=== PATIENT | male | born 1970 | race Caucasian/White ===

== ENCOUNTER 2022-05-09 11:57 | Day surgery (SDC) | payer OTHER ==
[~2022-05-09] VITALS: Ht 177.8 cm; Wt 75.0 kg
[~2022-05-09 11:57] MED LIST: CELEBREX200 MG PO; COSENTYX P150 MG/11 SUB-Q; OTEZLA30 MG PO; TADALAFIL20 M1 PO; TRIAMCINOLONE A15 GM TOP; VALTREX1000 MG PO; VITAMIN D21250 MCG PO
--- NOTE | 2022-05-09 13:44 | NUR ---
05/09/22 1342 Tracey Arce 1334 PATIENT ARRIVES TO PACU AWAKE BUT DROWSY. ASKS/ANSWERS QUESTIONS APPROPRIATELY. RESP EVEN AND UNLABORED, ROOM AIR SATS >94%. DENIES PAIN OR NAUSEA. REPOSITIONS SELF TO BACK. SITTING UP DRINKING WATER.
--- NOTE | 2022-05-11 08:10 | OR ---
[facility] [address] [place], [place] [address] Signed DATE OF OPERATION: 05/09/2022 SURGEON: Radha Curtis MD PREOPERATIVE DIAGNOSIS: Surveillance history of submucosal lipoma in excision 2016. POSTOPERATIVE DIAGNOSIS: Linear polyp at 50 cm (excised). PROCEDURE: Total colonoscopy to cecum with cold snare polypectomy x1 surgeon. ANESTHESIA: Intravenous sedation; fentanyl 200 mcg and Versed 10 mg. INDICATIONS: This 51-year-old white man is a patient Dr. Galo and known to me from the past undergoing colonoscopy in 2016, six years ago and finding of a submucosal lipoma, which was resected. He is symptom free currently. He has family history of colon cancer in a maternal grandmother and a paternal grandmother. He currently has no symptoms of bleeding, diarrhea, or constipation. He is admitted to undergo colonoscopy and understands the risks of bleeding, infection, and perforation. FINDINGS: The prep was excellent. Complete colonoscopy was undertaken to the cecum without question. An area of tattoo from prior polypectomy or similar resection was noted in the sigmoid. He had a linear polyp at 50 cm, which was excised with cold snare technique. The remaining colon was normal. DESCRIPTION OF PROCEDURE: The patient was brought to the endoscopy suite and placed in lateral decubitus position given intravenous sedation to the point of slurred speech and nystagmus. Digital rectal examination was normal. Olympus video colonoscope was passed into the rectum and manipulated throughout the colon, ultimately intubating the cecum itself. The ileocecal valve and appendiceal orifice were entirely normal. The scope was withdrawn from that point of examination throughout, showed no sign of abnormality until approximately 50 cm from the anal verge, where a linear adenomatous-appearing polyp was noted, this was excised with cold snare polypectomy technique in two separate bites. Further withdrawal showed a submucosal tattoo roz in the rectosigmoid area. The scope was further Electronically Signed By: RADHA CURTIS MD 05/11/22 0810 PATIENT NAME: RADHA CORDOBA OPERATIVE REPORT DATE OF : 74 REPORT #: [id number] PHYSICIAN: RADHA CURTIS MD PCP: ARSALAN GALO MD REPORT IS CONFIDENTIAL AND NOT TO BE RELEASED WITHOUT AUTHORIZATION [facility] [address] [facility] [place], [place] [address] Signed withdrawn. There were no other findings of concern. He was taken to the recovery room in good condition. CONCLUDING DIAGNOSIS: Polyps x1. PLAN: Recommend repeat colonoscopy in three years or sooner if symptoms should occur. He will return to the ongoing care of Dr. Galo. MD VAISHALI Reardon/CHALINO /[id number] cc: Dr. Galo Copies: ~ Electronically Signed By: RADHA CURTIS MD 05/11/22 0810 PATIENT NAME: RADHA CORDOBA OPERATIVE REPORT DATE OF : 74 REPORT #: [id number] PHYSICIAN: RADHA CURTIS MD PCP: ARSALAN GALO MD REPORT IS CONFIDENTIAL AND NOT TO BE RELEASED WITHOUT AUTHORIZATION
--- NOTE | 2022-05-12 20:41 | PATH ---
[facility] [address] [place], [place] [address] Signed SPECIMEN(S): A COLON POLYP AT 50 CM SPECIMEN SOURCE: A. COLON POLYP AT 50 CM CLINICAL HISTORY: Surveillance colonoscopy; history of submucosal lipoma on colonoscopy in 2016. FINAL PATHOLOGIC DIAGNOSIS: Colon, polyp at 50 cm, biopsy: - Hyperplastic polyp. NRT:alf:STEVENSON MICROSCOPIC EXAMINATION: Histologic sections of all submitted blocks are examined by light microscopy. These findings, together with the gross examination, support the pathologic diagnosis. GROSS DESCRIPTION: The specimen, labeled "PATRICIA, colon polyp at 50 cm," is received in formalin and consists of three escobar soft tissue fragments that measure 0.3 to 1.3 cm in greatest dimension. The specimen is entirely submitted in cassette (A1). HH (under the direct supervision of a pathologist) The Gross Description was prepared using a voice recognition system. The report was reviewed for accuracy; however, sound-alike word errors, addition and/or deletions may occur. If there is any question about this report, please contact Client Services. PERFORMING LABORATORY: The technical component was performed by [facility], [address] [place] [id number] (CLIA# [id number]). [facility] [address] [facility], [place] [address] (CLIA# [id number]). Diagnostician: Janine Hutton MD Pathologist Electronically Signed 05/12/2022 PATIENT NAME: RADHA CORDOBA PATHOLOGY DATE OF : 74 REPORT #: [id number] PHYSICIAN: SOSA ÁLVAREZ PCP: ARSALAN SHEPARD MD REPORT IS CONFIDENTIAL AND NOT TO BE RELEASED WITHOUT AUTHORIZATION
== END 2022-05-09 14:10 | disposition home or self-care (01) ==
LOC: DS 11:57 → OPS 11:57 → DS 13:00 → OPS 13:00
PROVIDERS: ATTEND Surgery
PROC: 0DBN8ZZ Excision of Sigmoid Colon, Via Natural or Artificial Opening Endoscopic (ICD-10-PCS; principal; 2022-05-09 13:00)
DX: Z12.11 Encounter for screening for malignant neoplasm of colon (principal); Z80.0 Family history of malignant neoplasm of digestive organs; M25.40 Effusion, unspecified joint; Z86.018 Personal history of other benign neoplasm; K63.5 Polyp of colon
CPT/HCPCS: 99153; G0500; J2250; J3010; J7121

== ENCOUNTER 2025-06-12 08:40 | Day surgery (SDC) | payer OTHER ==
[2025-06-09 07:32] VITALS: BP 169/112
[2025-06-09 07:54] VITALS: BP 152/112
--- NOTE | 2025-06-09 08:05 | NUR ---
PT BP ELEVATED. PT STATES HAVING ANKLE PAIN FROM PSORIATIC ARTHIRITIS FLARE. TOOK INJECTION THIS AM. RECHECK OF BP 152/112. STATES BP WAS "ABOUT THE SAME AT PRE OP DOCTOR APPOINTMENT." ENCOURAGED TO CALL DR SHEPARD AND GET IN TO BE SEEN SOON POSSIBLE FOR BP. CHART TO OCULAR CARE TECHNICIAN FOR REVIEW.
[~2025-06-12] VITALS: Ht 177.8 cm; Wt 77.0 kg
[~2025-06-12 08:40] MED LIST changes: +CHLORDIAZEPOXID25 MG PO; +FOLIC ACID0.4 MG PO; +IBLOOD GLUCOSE TEST STRIP 1 EA TEST VI PRN; +KETOCONAZOLE15 GM TOP; +LACTATED RINGER'S 1,000 ML IV SCH; +LIDOCAINE HCL 1% 5 ML SDV INJ ONE; +VITAMIN B-1100 MG PO
[2025-06-12 08:58] VITALS: BP 144/89
--- NOTE | 2025-06-12 09:35 | NUR ---
0917-PT ARRIVED BACK TO ON RA, AAOX3, ANSWERING QUESTIONS APPROPRIATELY, AND ABLE TO MAKE HIS NEEDS KNOWN. VS TAKEN. IV SITE ASSESSED. REPORT RECEIVED FROM EVENT OPERATIONS MANAGER. NO VISIBLE DRAINAGE FROM URETHRA AND ABEL PATENT AND DRAINING ADAQUATE AMTS OF CLR, PINK URINE TO GRAVITY. CATH SECURE IN PLACE. PT REPORTS TOLERABLE PAIN AT 2/10 AND DENIES NAUSEA. PT SIPPING ON ICE WATER. IV NOTED TO BE SL'D UPON RETURN. ALL QUESTIONS ANSWERED. BED IN LOW POSITION, WHEELS LOCKED, BILAT RAILS IN PLACE FOR SAFETY. WARM BLANKET PROVIDED. AT BEDSIDE. 0935-SPOKE WITH DR KELLOGG AND RECEIVED DIRECTION TO REMOVE ABEL CATH. SHE REPORTS PT CAN GO HOME AFTERWARDS AND DOES NOT NEED TO VOID BEFORE DISCHARGING HOME. INTO PTS ROOM. PROCEDURE EXPLAINED TO PT. BALLOON DEFLATED OF APPROX 10ML OF LIQUID. CATH THEN REMOVED. TIP APPEARS INTACT. PT TOLERATED WELL. PT PROVIDED WITH BABY WIPES FOR CLEANING KEYSHA-AREA. AT BEDSIDE. 150 ML OF PINK, CLR URINE NOTED IN ABEL DRAINAGE BAG AT TIME OF REMOVAL. CALL LIGHT WITHIN REACH. FALL PREVENTIONS IN PLACE. ICE WATER REFILLED.
--- NOTE | 2025-06-12 09:55 | NUR ---
0955-INTO PTS ROOM FOR DISCHARGE EDUCATION. PT AND PROVIDED WITH VERBAL AND WRITTEN DISCHARGE EDUCATION. ALL QUESTIONS ANSWERED. IV REMOVED. TIP APPEARS INTACT. PRESSURE DRSG APPLIED WITH GAUZE AND COBAN. PT FINISHED DRESSING FOR DISCHARGE.
--- NOTE | 2025-06-12 10:13 | NUR ---
PT DISCHARGED FROM DS VIA WC TO PASSENGER SIDE OF WIFES VEHICLE. ALL PERSONAL BELONGINGS TAKEN WITH PT.
[2025-06-12] MEDS ORDERED: LIDOCAINE HCL 2% 5 ML SDV ONE (11:45)
--- NOTE | 2025-06-12 13:00 | NUR ---
06/12/25 1300 Roselyn Paris 1249-PT ARRIVES TO PACU, VIA STRETCHER, PT RESTING ON LT SIDE, PT A+OX4, DENIES PAIN OR NAUSEA, VSS ON RA. PT EDUCATED AND ENCOURAGED TO PASS GAS. 1255-PT SITTING UP IN BED, SIPPING ON WATER, DENIES PAIN OR NAUSEA, VSS ON RA.
[2025-06-12 13:18] VITALS: BP 138/93
--- NOTE | 2025-06-14 14:31 | OR ---
[facility] [address] [place], [place] [address] Signed DATE OF OPERATION: 06/12/2025 SURGEON: Radha Curtis MD PREOPERATIVE DIAGNOSIS: Linear polyp at 50 cm 2021 (hyperplastic). POSTOPERATIVE DIAGNOSES: 1. Sigmoid diverticulosis. 2. Polyps x3 (cecum, left colon, and sigmoid). PROCEDURES: Total colonoscopy to cecum with cold morcellation polypectomy x3. ANESTHESIA: Intravenous sedation, propofol, Jin De CRNA and Herbie Hilliard CRNA. INDICATION: This 54-year-old white man is a patient Dr. Galo, underwent colonoscopy in 2021 where he was found to have a linear polyp at 50 cm, uncertain to his histology initially. He was ultimately found to be hyperplastic. It was elongated and unusual in appearance. He has no current symptoms of bleeding, diarrhea, or constipation. He did have high requirement for sedation including fentanyl 200 mcg and Versed 10 mg, likely related to alcohol use and on that basis, he has been recommended to have propofol infusional sedation on this occasion. The risks of bleeding, infection, perforation, and other unforeseen complications was reviewed with him in detail. He understands and wished to proceed. FINDINGS: The prep was excellent. Complete colonoscopy was undertaken of the cecum. He had a small polyp of the cecum. The proximal descending and the sigmoid colon, all excised with cold morcellation technique. Diverticula were noted of the sigmoid and left colon as well. DESCRIPTION OF PROCEDURE: The patient was brought to the endoscopy suite and placed in lateral decubitus position, given intravenous sedation to a point of slurred speech and nystagmus. Digital rectal examination showed some hypertrophied anal papilla. An Olympus video colonoscope was passed in the rectum and manipulated throughout the colon noting diverticula of the sigmoid and left colon. Scope was ultimately passed to the cecum after abdominal wall Electronically Signed By: RADHA CURTIS MD 06/14/25 1431 PATIENT NAME: RADHA CRODOBA OPERATIVE REPORT DATE OF : 74 REPORT #: [id number] PHYSICIAN: RADHA CURTIS MD PCP: ARSALAN GALO MD REPORT IS CONFIDENTIAL AND NOT TO BE RELEASED WITHOUT AUTHORIZATION [facility] [address] [place], [place] [address] Signed stabilization. The ileocecal valve and appendiceal orifice were normal. A small adenomatous polyp was noted not far from the appendiceal orifice, which was excised with cold morcellation technique. The scope was further withdrawn. Examination showed no sign of abnormality into the proximal left colon where another small polyp was noted. This was excised as well. Further withdrawal showed probably a hyperplastic appearing polyp, was not large, it was excised as well at the sigmoid. Further withdrawal showed no abnormality of the rectosigmoid of rectum. The patient was taken to the recovery room in good condition. CONCLUDING DIAGNOSES: Small polyps x3 and diverticulosis. PLAN: Recommend repeat colonoscopy in 3-5 years based on current findings, sooner if symptoms should develop. He will return to the ongoing care of Arsalan Galo MD otherwise. MD VAISHALI Reardon/CHALINO /[id number] cc: Arsalan Galo MD Copies: ARSALAN GALO MD ~ Electronically Signed By: RADHA CURTIS MD 06/14/25 1431 PATIENT NAME: BERYL,RADHA KELLEY OPERATIVE REPORT DATE OF : 74 REPORT #: [id number] PHYSICIAN: RADHA CURTIS MD PCP: ARSALAN GALO MD REPORT IS CONFIDENTIAL AND NOT TO BE RELEASED WITHOUT AUTHORIZATION
== END 2025-06-12 13:25 | disposition home or self-care (01) ==
LOC: OPS 08:40 → DS 08:40 → OPS 08:45
PROVIDERS: ATTEND Surgery
PROC: 0DBN8ZX Excision of Sigmoid Colon, Via Natural or Artificial Opening Endoscopic, Diagnostic (ICD-10-PCS; 2025-06-12)
PROC: 0DBG8ZX Excision of Left Large Intestine, Via Natural or Artificial Opening Endoscopic, Diagnostic (ICD-10-PCS; 2025-06-12)
PROC: 0DBH8ZX Excision of Cecum, Via Natural or Artificial Opening Endoscopic, Diagnostic (ICD-10-PCS; principal; 2025-06-12 10:15)
DX: Z12.11 Encounter for screening for malignant neoplasm of colon (principal); D12.0 Benign neoplasm of cecum; D12.4 Benign neoplasm of descending colon; K63.5 Polyp of colon; K57.30 Diverticulosis of large intestine without perforation or abscess without bleeding; I10 Essential (primary) hypertension; Z86.0102 Personal history of hyperplastic colon polyps; Z86.018 Personal history of other benign neoplasm
CPT/HCPCS: 00811; 88305; J2003; J2704; J7121